=== PATIENT | male | born 1975 | race Caucasian/White ===

== ENCOUNTER 2020-03-01 18:57 | Emergency (ER) | payer BC ==
--- NOTE | 2020-03-01 19:32 | EDM.PDOC ---
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 The sensation was mild, and didn't seem to affect work. There was no reported tearing or blurred vision, or escalation of sxs overnight. Today, he thought there was something in the L eye, and inspection with a flashlight was thought to reveal a fb of the L cornea, prompting visit to the ED this evening. - Related Data Allergies Allergy/AdvReac Type Severity Reaction Status Date / Time No Known Allergies Allergy Verified 03/01/20 19:18 Home Meds: Home Meds lisinopriL [Lisinopril] 1 tab PO DAILY 03/01/20 [History] ED ROS GENERAL - Review of Systems Review Of Systems: Comprehensive ROS is negative, except as noted in HPI. ED EXAM GENERAL W FULL EYE - Physical Exam Exam: See Below Exam Limited By: No Limitations General Appearance: Alert, WD/WN, No Apparent Distress Eye Exam: Left Eye: Conjunctival Injection, Bilateral Eye: Normal Inspection, PERRL Visual Acuity (R) 20/: 20 Visual Acuity (L) 20/: 20 With Correction: No Eyelids: Left: Lid Everted for Exam (negative), Bilateral: Normal Appearance Conjunctiva & Sclera: Right: Normal Appearance, Left: Injected Cornea Exam: Bilateral: Normal Appearance, Examined with Flourescein Extraocular Movements: Bilateral: Intact Pupils: Normal Accommodation Pupillary Size: Bilateral: 5 mm Pupillary Reaction: Bilateral: Brisk Anterior Chamber: Bilateral: Normal Appearance Posterior Chamber: Bilateral: Normal Funduscopic Ears: Normal External Exam Nose: Normal Inspection Throat/Mouth: Normal Inspection Head: Normocephalic Lymphatic: No Adenopathy Course - Vital Signs Text/Narrative:: Patient tolerated exam well. Departure - Departure Time of Disposition: 19:32 Disposition: Home, Self-Care 01 Condition: Good Clinical Impression: Left eye complaint - Discharge Information *PRESCRIPTION DRUG MONITORING PROGRAM REVIEWED*: Not Applicable *COPY OF PRESCRIPTION DRUG MONITORING REPORT IN PATIENT SID: Not Applicable Referrals: Jocelyn Francisco BATTERY ENGINEER [Primary Care Provider] - Forms: ED Department Discharge - Problem List & Annotations (1) Left eye complaint SNOMED Code(s): 827154819 Code(s): H57.9 - UNSPECIFIED DISORDER OF EYE AND ADNEXA Status: Acute Current Visit: Yes Annotation/Comment:: Exam did not reveal fb or abrasions to cornea, and no fb of eyelids or orbit. I suggested sxs cares, and follow up with Optomitrist if sxs persist. - Problem List Review Problem List Initiated/Reviewed/Updated: Yes - Assessment/Plan Plan: Follow up if needed with optomitrist.
== END 2020-03-01 19:35 | disposition home or self-care (01) ==
LOC: FB.ED 18:57
DX: H57.89 Other specified disorders of eye and adnexa (principal); Z79.899 Other long term (current) drug therapy
CPT/HCPCS: 99283